=== PATIENT | male | born 1965 | race Caucasian/White ===

== ENCOUNTER → 2021-09-06 | Outpatient (CLI) | payer OTHER ==
--- NOTE | 2021-09-06 12:07 | XR ---
EXAMINATION TYPE: XR hand complete RT DATE OF EXAM: 09/06/2021 CLINICAL HISTORY: Pain from injury greatest third through fifth fingers TECHNIQUE: Frontal, lateral and oblique images of the right hand are obtained. COMPARISON: None. FINDINGS: There is no acute fracture/dislocation evident in the right hand. The joint spaces in the right hand appear within normal limits. The overlying soft tissue appears unremarkable. IMPRESSION: There is no acute fracture or dislocation in the right hand.
== END | disposition home or self-care (01) ==
LOC: RADXRMAIN 11:43
PROVIDERS: ATTEND Family Medicine
DX: S69.91XA Unspecified injury of right wrist, hand and finger(s), initial encounter (principal)

== ENCOUNTER → 2021-09-21 | Outpatient (CLI) | payer OTHER ==
[2021-09-21 10:11] LABS: African American GFR (CKD) >90 (>60 ml/min/1.73 sqM); Blood Urea Nitrogen 11 mg/dL (9-20); Non-African American GFR(CKD) >90 (>60 ml/min/1.73 sqM)
--- NOTE | 2021-09-21 13:05 | CT ---
EXAMINATION TYPE: CT pelvis w con DATE OF EXAM: 09/21/2021 COMPARISON: NONE HISTORY: 55-year-old male Malignant Neoplasm of Prostate TECHNIQUE: Contiguous axial scanning of the abdomen and pelvis following administration of 100 ml Omn ipaque 300 IV contrast. Delayed images through the kidneys and coronal/sagittal reconstructions perf ormed. CT DLP: 235.1 mGycm Automated exposure control for dose reduction was used. FINDINGS: There is fusiform ectasia of the distal abdominal aorta to 2.5 cm. No obvious lower retrope ritoneal or pelvic lymphadenopathy is seen. No dilated small bowel or free fluid. Prostate gland is enlarged measuring up to 4.7 cm wide. There is abnormal soft tissue mass extending from the right superior aspect of the prostate gland into the right paramedian base of bladder, exten ding into the bladder by 4.0 cm AP by 3.5 cm wide by 2.1 cm craniocaudal. Difficult to exclude some i nvolvement of the right seminal vesicle, axial image 41. Bones: Patchy sclerosis left ischial tuberosity and vague sclerosis posterior left iliac bone. IMPRESSION: 1. ABNORMAL SOFT TISSUE EXTENDING FROM THE PROSTATE GLAND INTO THE RIGHT PARAMEDIAN BASE OF THE BLADD ER MEASURES 4.0 X 3.5 X 2.1 CM. 2. CONCERNING FOR OSTEOBLASTIC METASTASES AT THE LEFT ISCHIAL TUBEROSITY AND POSTERIOR LEFT ILIAC BON E. 3. NO SUSPICIOUS LYMPHADENOPATHY SEEN IN THE PELVIS OR LOWER RETROPERITONEUM.
--- NOTE | 2021-09-21 15:28 | NM ---
EXAMINATION TYPE: NM bone scan whole body DATE OF EXAM: 09/21/2021 COMPARISON: CT pelvis 09/21/2021 HISTORY: Prostate cancer, C 61 Delayed whole-body scanning was performed following the injection of 22.5 mCi Tc 99m MDP. Images acq uired 3.75 hours post injection. FINDINGS: The left posterior patient shows increased radio pharmaceutical uptake, right superior pubic ramus al so shows abnormal uptake. Focus of abnormal uptake is also present in the posterior left acetabulum r egion. Uptake within the maxilla and mandible is likely due to periodontal disease. Soft tissue uptak e is normal. Posterior left ilium shows a focus of uptake which likely corresponds to CT abnormality. Uptake within the feet, knees, hands and wrists, shoulders is likely due to degenerative change. 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
== END | disposition home or self-care (01) ==
LOC: RADNMMAIN 09:28
PROVIDERS: ATTEND Urology
DX: C61 Malignant neoplasm of prostate (principal)
CPT/HCPCS: 82565; 84520; 72193; 36415; 78306; A9503; Q9967 ×2

== ENCOUNTER → 2021-11-23 | Outpatient (CLI) | payer OTHER ==
[2021-11-24 00:15] LABS: Prostate Specific Antigen 0.3 ng/mL (0.00-3.50); Testosterone 5.75 ng/mL (86.98-780.10)
== END | disposition home or self-care (01) ==
LOC: LABWHC1 15:24
PROVIDERS: ATTEND Urology
DX: C61 Malignant neoplasm of prostate (principal)
CPT/HCPCS: 36415; 84153; 84403

== ENCOUNTER → 2022-07-22 | Outpatient (CLI) | payer OTHER ==
--- NOTE | 2022-07-25 09:35 | NM ---
EXAMINATION TYPE: NM bone scan whole body DATE OF EXAM: 07/22/2022 2:50 PM CLINICAL INDICATION:Male, 56 years old with history of C61 Prostate cancer. COMPARISON: 09/21/2021 TECHNIQUE: Intravenous administration 22.5 mCi Tc 99m MDP followed by multiple scintigraphic images o f the appendicular and axial skeleton. Small [id number] pelvis images were taken. Images acquired 3.5 hours post injection. FINDINGS: Persistent abnormal uptake is identified within the right pelvis. No new areas of abnormal uptake. Th ere appears to be less uptake on this exam There is increased uptake within the bilateral shoulder, sternoclavicular, and sacroiliac joints con sistent with degenerative changes. No other photopenic areas or areas of increased activity are ident ified. Physiologic radiotracer activity is demonstrated in the kidneys and bladder. 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 Consider PET with gallium-68 PSMA.
== END | disposition home or self-care (01) ==
LOC: RADNMMAIN 09:57
PROVIDERS: ATTEND Family Medicine
DX: C61 Malignant neoplasm of prostate (principal)
CPT/HCPCS: 78306; A9503

== ENCOUNTER → 2023-10-12 | Outpatient (CLI) | payer OTHER | END | disposition home or self-care (01) | LOC: LABPRL 13:30 | PROVIDERS: ATTEND Family Medicine | DX: C61 Malignant neoplasm of prostate (principal) | CPT/HCPCS: 84153; 84403 ==

== ENCOUNTER 2024-09-02 14:44 | Inpatient (IN) | payer OTHER ==
[2024-09-02 15:20] LABS: Basophils # (A) 0.08 10*3/uL (0.00-0.10); Basophils % (A) 0.9 %; Eosinophils # (A) 0.03 10*3/uL (0.04-0.35); Eosinophils % (A) 0.3 %; HCT 42.3 % (39.6-50.0); HGB 15.1 g/dL (13.0-17.0); Lymphocytes # (A) 1.77 10*3/uL (0.90-5.00); Lymphocytes % (A) 19.1 %; MCH 33.6 pg (27.0-32.0); MCHC 35.7 g/dL (32.0-37.0); MCV 94.2 fL (80.0-97.0); Monocytes # (A) 0.79 10*3/uL (0.20-1.00); Monocytes % (A) 8.5 %; Neutrophils # (A) 6.56 10*3/uL (1.80-7.70); Neutrophils % (A) 70.9 %; Platelet Count 189 10*3/uL (140-440); RBC 4.49 10*6/uL (4.40-5.60); RDW 14.0 % (11.5-14.5); WBC 9.26 10*3/uL (4.50-10.00)
[2024-09-02] MEDS: KETOROLAC 15 MG/ML 1 ML VIAL IVP STA (15:26)
[2024-09-02] MEDS: LORazepam 1 MG/0.5 ML VIAL IV STA (15:27)
[2024-09-02 15:39] LABS: INR 0.9 (<1.2); Partial Thromboplastin Time 23.0 sec (22.0-30.0); Prothrombin Time 10.0 sec (10.0-12.5)
[2024-09-02 15:42] LABS: ALT 12 U/L (4-49); AST 30 U/L (17-59); African American GFR (CKD) >90 (>60 ml/min/1.73 sqM); Albumin 4.1 g/dL (3.5-5.0); Alkaline Phosphatase 140 U/L (38-126); Anion Gap 10 mmol/L; Blood Urea Nitrogen 7 mg/dL (9-20); Calcium 9.5 mg/dL (8.4-10.2); Carbon Dioxide 23 mmol/L (22-30); Chloride 102 mmol/L (98-107); Glucose 148 mg/dL (74-99); Non-African American GFR(CKD) >90 (>60 ml/min/1.73 sqM); Potassium 3.9 mmol/L (3.5-5.1); Sodium 135 mmol/L (137-145); Total Protein 6.7 g/dL (6.3-8.2)
--- NOTE | 2024-09-02 16:17 | ED ---
General Adult HPI - General Chief complaint: Chest Pain Stated complaint: Chest pain,SOB Time Seen by Provider: 09/02/24 14:50 Source: patient, RN notes reviewed, old records reviewed Mode of arrival: ambulatory Limitations: no limitations - History of Present Illness Initial comments: This is a 58-year-old male who presents to the emergency department complaining of sharp left-sided chest pain. Patient states is also been difficult to breathe but increasing pain occurs when he takes a deep breath. Patient does have history of prostate cancer. Patient denies any fever or chills. Patient denies any back pain. Patient states the pain is on the left side of his chest and again pleuritic in nature. Patient denies any swelling to his legs or calf tenderness. - Related Data Allergies Allergy/AdvReac Type Severity Reaction Status Date / Time No Known Allergies Allergy Verified 09/02/24 14:50 Review of Systems ROS Statement: Those systems with pertinent positive or pertinent negative responses have been documented in the HPI. ROS Other: All systems not noted in ROS Statement are negative. Past Medical History Additional Past Medical History / Comment(s): prostate cancer, History of Any Multi-Drug Resistant Organisms: None Reported Past Surgical History: No Surgical Hx Reported Past Psychological History: No Psychological Hx Reported Smoking Status: Current every day smoker Past Alcohol Use History: Occasional Past Drug Use History: Marijuana General Exam - General Exam Comments Initial Comments: GENERAL: Patient is well-developed and well-nourished. Patient is nontoxic and well- hydrated and is in mild distress. ENT: Neck is soft and supple. No significant lymphadenopathy is noted. Oropharynx is clear. Moist mucous membranes. Neck has full range of motion without eliciting any pain. EYES: The sclera were anicteric and conjunctiva were pink and moist. Extraocular movements were intact and pupils were equal round and reactive to light. Eyel ids were unremarkable. PULMONARY: Unlabored respirations. Good breath sounds bilaterally. No audible rales rhonchi or wheezing was noted. CARDIOVASCULAR: There is a regular rate and rhythm without any murmurs gallops or rubs. ABDOMEN: Soft and nontender with normal bowel sounds. SKIN: Skin is clear with no lesions or rashes and otherwise unremarkable. NEUROLOGIC: Patient is alert and oriented x3. Cranial nerves II through XII are grossly intact. Motor and sensory are also intact. Normal speech, volume and content. Symmetrical smile. MUSCULOSKELETAL: Normal extremities with adequate strength and full range of motion. LYMPHATICS: No significant lymphadenopathy is noted PSYCHIATRIC: Normal psychiatric evaluation. Limitations: no limitations Course Vital Signs 09/02/24 09/02/24 09/02/24 14:46 15:31 15:33 Temperature 97.7 F Pulse Rate 118 H 97 Respiratory 20 20 Rate Blood Pressure 103/63 127/92 O2 Sat by Pulse 93 L 92 L 96 Oximetry 09/02/24 16:39 Temperature Pulse Rate 93 Respiratory 20 Rate Blood Pressure 132/77 O2 Sat by Pulse 99 Oximetry Procedures - [place] Protocol (Time Out) Nurse: Terrell Figueroa Medical Decision Making - Medical Decision Making EKG is interpreted by myself EKG EKG shows sinus tachycardia at 111 bpm UT interval 136 QRS is 88 QT interval is 342 QTc is 407. Patient's EKG shows no ST segment elevation or depression Was pt. sent in by a medical professional or institution (CRISTIAN Diaz, PAEDIATRIC SURGEON, urgent care, hospital, or fdc...) When possible be specific @ -No Did you speak to anyone other than the patient for history (EMS, parent, family, police, friend...)? What history was obtained from this source @ -No Did you review nursing and triage notes (agree or disagree)? Why? @ -I reviewed and agree with nursing and triage notes Were old charts reviewed (outside hosp., previous admission, EMS record, old EKG, old radiological studies, urgent care reports/EKG's, fdc records)? Report findings @ -No old charts were reviewed Differential Diagnosis? @ -Differential Chest Pain: Stable Angina, Unstable Angina, STEMI, NSTEMI Aortic Dissection, Pneumothorax, Musculoskeletal, Esophageal Spasm GERD, Cholecystitis, Pancreatitis, Zoster, this is not meant to be an all-inclusive list. EKG interpreted by me (3pts min.). @ -As above X-rays interpreted by me (1pt min.). @ -None done CT interpreted by me (1pt min.). @ -CT of the chest shows bilateral pulmonary embolus as well as a inferior vena cava thrombus entering into the liver. Patient also has a left ventricle thrombus. U/S interpreted by me (1pt. min.). @ -None done What testing was considered but not performed or refused? (CT, X-rays, U/S, labs)? Why? @ -None What meds were considered but not given or refused? Why? @ -None Did you discuss the management of the patient with other professionals (professionals i.e. DrDelmi, PA, PAEDIATRIC SURGEON, lab, RT, psych nurse, web content & social media manager, marketing forecaster, teacher, business liaison officer, correctional casework specialist)? Give summary @ -I spoke with sound physicians agreed to admit the patient. I spoke with radiologist who identified the thrombus to me. I spoke with Dr. Gorman about the IVC heart and lung thrombus and he want the patient on high dose heparin which the patient was already on. Was smoking cessation discussed for >3mins.? @ -No Was critical care preformed (if so, how long)? @ -35 minutes Were there social determinants of health that impacted care today? How? (Homelessness, low income, unemployed, alcoholism, drug addiction, transportation, low edu. Level, literacy, decrease access to med. care, long-term, rehab)? @ -No Was there de-escalation of care discussed even if they declined (Discuss DNR or withdrawal of care, Hospice)? DNR status @ -No What co-morbidities impacted this encounter? (DM, HTN, Smoking, COPD, CAD, Cancer, CVA, ARF, Chemo, Hep., AIDS, mental health diagnosis, sleep apnea, morb id obesity)? @ -None Was patient admitted / discharged? Hospital course, mention meds given and rout e, prescriptions, significant lab abnormalities, going to OR and other pertinent info. @ -Patient has pulmonary embolisms and IVC and the left ventricle thrombus. Patient has been started on heparin high-dose. Patient will be admitted to the hospital to [facility] Undiagnosed new problem with uncertain prognosis? @ -No Drug Therapy requiring intensive monitoring for toxicity (Heparin, Nitro, Insulin, Cardizem)? @ -No Were any procedures done? @ -No Diagnosis/symptom? @ -Pulmonary embolism Acute, or Chronic, or Acute on Chronic? @ -Acute Uncomplicated (without systemic symptoms) or Complicated (systemic symptoms)? @ -Acute complicated Side effects of treatment? @ -No Exacerbation, Progression, or Severe Exacerbation? @ -No Poses a threat to life or bodily function? How? (Chest pain, USA, AR, pneumonia, PE, COPD, DKA, ARF, appy, cholecystitis, CVA, Diverticulitis, Homicidal, Suicid al, threat to staff... and all critical care pts) @ -Yes this can lead to hypoxia and endorgan dysfunction - Lab Data Result diagrams: 09/02/24 15:12 09/02/24 15:12 Lab Results 09/02/24 09/02/24 09/02/24 Range/Units 15:12 15:12 15:12 WBC 9.26 (4.50-10.00) 10*3/uL RBC 4.49 (4.40-5.60) 10*6/uL Hgb 15.1 (13.0-17.0) g/dL Hct 42.3 (39.6-50.0) % MCV 94.2 (80.0-97.0) fL MCH 33.6 H (27.0-32.0) pg MCHC 35.7 (32.0-37.0) g/dL Plt Count 189 (140-440) 10*3/uL MPV 9.4 L (9.5-12.2) fL Immature Gran % (Auto) 0.3 % Neutrophils % 70.9 % Lymphocytes % 19.1 % Monocytes % 8.5 % Eosinophils % 0.3 % Basophils % 0.9 % Immature Gran # 0.03 (0.00-0.04) 10*3/uL Neutrophils # 6.56 (1.80-7.70) 10*3/uL Lymphocytes # 1.77 (0.90-5.00) 10*3/uL Monocytes # 0.79 (0.20-1.00) 10*3/uL Eosinophils # 0.03 L (0.04-0.35) 10*3/uL Basophils # 0.08 (0.00-0.10) 10*3/uL PT 10.0 (10.0-12.5) sec INR 0.9 (<1.2) APTT 23.0 (22.0-30.0) sec D-Dimer 4.25 H (<0.60) mg/L FEU Sodium 135 L (137-145) mmol/L Potassium 3.9 (3.5-5.1) mmol/L Chloride 102 (98-107) mmol/L Carbon Dioxide 23 (22-30) mmol/L Anion Gap 10 mmol/L BUN 7 L (9-20) mg/dL Creatinine 0.62 L (0.66-1.25) mg/dL Est GFR (CKD-EPI)AfAm >90 (>60 ml/min/1.73 sqM) Est GFR (CKD-EPI)NonAf >90 (>60 ml/min/1.73 sqM) Glucose 148 H (74-99) mg/dL Plasma Lactic Acid Ken (0.7-2.0) mmol/L Calcium 9.5 (8.4-10.2) mg/dL Total Bilirubin 0.7 (0.2-1.3) mg/dL AST 30 (17-59) U/L ALT 12 (4-49) U/L Alkaline Phosphatase 140 H (38-126) U/L Troponin I (0.000-0.034) ng/mL Total Protein 6.7 (6.3-8.2) g/dL Albumin 4.1 (3.5-5.0) g/dL 09/02/24 09/02/24 Range/Units 15:12 15:12 WBC (4.50-10.00) 10*3/uL RBC (4.40-5.60) 10*6/uL Hgb (13.0-17.0) g/dL Hct (39.6-50.0) % MCV (80.0-97.0) fL MCH (27.0-32.0) pg MCHC (32.0-37.0) g/dL Plt Count (140-440) 10*3/uL MPV (9.5-12.2) fL Immature Gran % (Auto) % Neutrophils % % Lymphocytes % % Monocytes % % Eosinophils % % Basophils % % Immature Gran # (0.00-0.04) 10*3/uL Neutrophils # (1.80-7.70) 10*3/uL Lymphocytes # (0.90-5.00) 10*3/uL Monocytes # (0.20-1.00) 10*3/uL Eosinophils # (0.04-0.35) 10*3/uL Basophils # (0.00-0.10) 10*3/uL PT (10.0-12.5) sec INR (<1.2) APTT (22.0-30.0) sec D-Dimer (<0.60) mg/L FEU Sodium (137-145) mmol/L Potassium (3.5-5.1) mmol/L Chloride (98-107) mmol/L Carbon Dioxide (22-30) mmol/L Anion Gap mmol/L BUN (9-20) mg/dL Creatinine (0.66-1.25) mg/dL Est GFR (CKD-EPI)AfAm (>60 ml/min/1.73 sqM) Est GFR (CKD-EPI)NonAf (>60 ml/min/1.73 sqM) Glucose (74-99) mg/dL Plasma Lactic Acid Ken 1.9 (0.7-2.0) mmol/L Calcium (8.4-10.2) mg/dL Total Bilirubin (0.2-1.3) mg/dL AST (17-59) U/L ALT (4-49) U/L Alkaline Phosphatase (38-126) U/L Troponin I 0.529 H* (0.000-0.034) ng/mL Total Protein (6.3-8.2) g/dL Albumin (3.5-5.0) g/dL Disposition Clinical Impression: Pulmonary emboli, Inferior vena caval thrombosis, Acute thrombus of left ventricle Disposition: ADMITTED IP TO THIS HOSP Referrals: None,Stated [Primary Care Provider] - 1-2 days Time of Disposition: 17:27
--- NOTE | 2024-09-02 16:40 | CT ---
EXAMINATION TYPE: CT chest angio for PE CT DLP: 258.3 mGycm, Automated exposure control for dose reduction was used. DATE OF EXAM: 09/02/2024 4:01 PM COMPARISON: None. CLINICAL INDICATION:Male, 58 years old with history of Cancer history and sharp pleuritic chest pain; shortness of breath and chest pain x 0500 today. Chest pain is worse with breathing. Pt has prosta te cancer and he is currently getting chemo. TECHNIQUE/CONTRAST: CTA scan of the thorax is performed with IV Contrast, patient injected with 100ml mL of Isovue 370, M IP images are created and reviewed these are created on a separate workstation.. FINDINGS: Pulmonary Artery: There are multiple filling defects seen in the bilateral pulmonary arteries most no tably involving the right main stem extending into the interlobar branches involving the right upper and middle lobes which appear nearly occlusive proximally. There are segmental and subsegmental pulmo nary emboli involving the right lower lobe. There are long areas of filling defects seen in the left interlobar branches extending into the segmental and subsegmental branches of the left lower lobe. Th e pulmonary artery is of normal size. Lungs/Pleura: Diffuse centrilobular and paraseptal emphysematous changes most pronounced in the upper lobes. Bibasilar atelectasis is noted. In the left lingular region and lower lobe there are some pat sabiha groundglass changes and small areas of consolidation suggested. No pneumothorax. Airway: Large airways are patent. Heart: Heart is overall within normal limits for size. No right ventricular strain is seen with an RV /LV ratio of 0.875. There is a nonenhancing round peripherally calcified focus in the left ventricula r apex measuring approximately 2.3 x 2.3 cm. Vasculature: Large filling defect is suspected within the IVC extending into the liver with some fill ing defects suggested within the hepatic veins. No evidence of aortic aneurysm. Mediastinum: Multiple nonenlarged lymph nodes are seen in the mediastinum some of which are partially calcified. The largest of these is seen in the left subcarinal region measuring up to 1.0 cm in shor t axis and within the right hilum measuring up to 12 mm in short axis. Musculoskeletal: No acute osseous abnormalities Soft Tissues/lymph nodes: Unremarkable. Lower neck: No significant findings. Upper Abdomen: No significant findings. IMPRESSION: 1. Multiple pulmonary emboli are seen involving the bilateral pulmonary arteries most pronounced on t he right side where filling defects are seen proximal as the right mainstem which are nearly occlusiv e. Please see detailed findings above. No evidence for right heart strain at this time with an RV/LV ratio 0.875. 2. Thrombosis is suggested within the IVC extending into the liver with possible involvement into the hepatic veins. This finding is felt less likely related to contrast admixture. 3. Nonenhancing round focus of peripheral calcification of the left ventricular apex may represent ca lcified/thrombosed reticular aneurysm versus peripherally calcified left ventricular thrombus. This f inding can be better characterized with a cardiac MRI with IV contrast. Correlate with any known hist ory or other prior imaging. 4. Mediastinal lymphadenopathy may be reactive or secondary to other process. Attention on follow-up. 5. Small areas of consolidation and groundglass changes in the lingular region and left lower lobe ma y relate to pulmonary infarction versus other infectious/inflammatory process. Findings of the case were discussed with Dr. Mark Lorenzo over the phone at 4:21 PM on 09/02/[address] Urbina. [facility], , 09/02/2024 4:38 PM
[2024-09-02] MEDS: HEPARIN SODIUM 1,000 UN/ML (10ML VL) IV ONE (16:49)
[2024-09-02] MEDS: HEPARIN SOD,PORK IN 0.45% NACL 25,000 UNIT in 0.45% NACL 1 250ML.BAG IV SCH (16:50)
--- NOTE | 2024-09-02 17:32 | P.HPIM ---
History of Present Illness H&P Date: 09/02/24 Patient is a 58-year-old male with history of prostate cancer on enzalutamide, and megestrol, anxiety disorder, GERD presenting with sudden onset chest pain that started this morning. He claims that he was in his usual state of health and woke up this morning at 5 AM with sudden onset left-sided chest pain extending to his left neck. He described the pain as pleuritic, 10 out of 10, associated with shortness of breath, palpitations and lightheadedness. He denies any nausea or vomiting or diaphoresis. He does claim that he was noticing some pain in his left lower extremity 1 week ago. He denies any travel history or sick contacts. He denies any fevers or chills. In the ED, temperature was 97.7, pulse 118, blood pressure 103/63, respiratory rate 20, saturating at 93% on room air. WBC 9.26, hemoglobin 15.1, platelet 199, D-dimer 4.25, sodium 135, creatinine 0.62, troponin 0.529. Chest CTA shows multiple PE involving bilateral pulmonary arteries more pronounced on the right side, no significant evidence of right heart strain, thrombosis suggested in the IVC extending into the liver with possible involvement into the hepatic veins, nonenhancing round focus of peripheral calcification of the left ventricular apex may represent calcified/thrombosed reticular aneurysm versus peripherally calcified left ventricular thrombus, mediastinal lymphadenopathy, may be reactive, consolidation and groundglass changes in the lingular region and left lower lobe. Patient being admitted as inpatient for acute bilateral submassive PE. Pertinent positives and negatives as discussed in HPI, a complete review of systems was performed and all other systems are negative. Patient seen and examined at bedside. Vital signs reviewed General: nontoxic, no distress, appears at stated age Derm: warm, dry Head: atraumatic, normocephalic, symmetric Eyes: EOMI, no lid lag, anicteric sclera, pupils equal round reactive to light ENT: Nose and ears atraumatic Neck: No thyromegaly, supple Mouth: no lip lesion, mucus membranes moist Cardiovascular: S1S2 reg, tachycardic, no murmur, no edema Lungs: clear to auscultation bilateral, no rhonchi, no rales, no wheeze, no accessory muscle use, supplemental oxygen Abdominal: soft, nontender to palpation, no guarding, no appreciable org anomegaly Ext: no gross muscle atrophy, muscle strength muscle strength 5 out of 5 in all 4 extremities, no contractures Neuro: CN II-XII grossly intact Psych: Alert, oriented, appropriate affect Assessment/Plan: Active: Acute submassive bilateral PE, likely provoked Type II NSTEMI secondary to above - Discussed with cardiology, may need tPA given the clot burden - For now continue on heparin drip, monitor APTT - Oxygen as needed - Echocardiogram ordered - Continue telemetry monitoring LV thrombus? - Echocardiogram pending Mediastinal lymphadenopathy - Likely reactive - Will need follow-up in the future Prostate cancer - On enzalutamide and megestrol - Hold for now - Heme-onc consult Chronic: Anxiety disorder GERD - Resume home medications once reconciled by pharmacy The patient is admitted with an anticipated greater than 2 midnight stay as inpatient status for evaluation of PE. Surrogate decision-maker: Spouse CODE STATUS: Full code DVT prophylaxis: Heparin drip Anticipated discharge date: Pending clinical course Anticipated discharge place: Pending clinical course A total of 65 minutes was spent on the care of this complex patient more than 50% of the time was spent in counseling and care coordination. Past Medical History Additional Past Medical History / Comment(s): prostate cancer, History of Any Multi-Drug Resistant Organisms: None Reported Past Surgical History: No Surgical Hx Reported Past Psychological History: No Psychological Hx Reported Smoking Status: Current every day smoker Past Alcohol Use History: Occasional Past Drug Use History: Marijuana Medications and Allergies Allergies Allergy/AdvReac Type Severity Reaction Status Date / Time No Known Allergies Allergy Verified 09/02/24 14:50 Physical Exam Vitals: Vital Signs Temp Pulse Resp BP Pulse Ox 09/02/24 16:39 93 20 132/77 99 09/02/24 15:33 96 09/02/24 15:31 97 20 127/92 92 L 09/02/24 14:46 97.7 F 118 H 20 103/63 93 L Intake and Output 09/02/24 09/02/24 09/02/24 06:59 14:59 22:59 Other: Weight 63.503 kg Results CBC & Chem 7: 09/02/24 15:12 09/02/24 15:12 Labs: Abnormal Lab Results - Last 24 Hours (Table) 09/02/24 09/02/24 09/02/24 Range/Units 15:12 15:12 15:12 MCH 33.6 H (27.0-32.0) pg MPV 9.4 L (9.5-12.2) fL Eosinophils # 0.03 L (0.04-0.35) 10*3/uL D-Dimer 4.25 H (<0.60) mg/L FEU Sodium 135 L (137-145) mmol/L BUN 7 L (9-20) mg/dL Creatinine 0.62 L (0.66-1.25) mg/dL Glucose 148 H (74-99) mg/dL Alkaline Phosphatase 140 H (38-126) U/L Troponin I (0.000-0.034) ng/mL 09/02/24 Range/Units 15:12 MCH (27.0-32.0) pg MPV (9.5-12.2) fL Eosinophils # (0.04-0.35) 10*3/uL D-Dimer (<0.60) mg/L FEU Sodium (137-145) mmol/L BUN (9-20) mg/dL Creatinine (0.66-1.25) mg/dL Glucose (74-99) mg/dL Alkaline Phosphatase (38-126) U/L Troponin I 0.529 H* (0.000-0.034) ng/mL
[2024-09-02] MEDS: SODIUM CHLORIDE 0.9% 1,000 ML IV ONE (18:00)
[2024-09-02] MEDS: KETOROLAC 15 MG/ML 1 ML VIAL IVP PRN (21:48)
[2024-09-03] MEDS: HEPARIN SODIUM 1,000 UN/ML (10ML VL) IV PRN (02:47)
[2024-09-03] MEDS: MORPHINE SULFATE 4 MG/ML SYRINGE IVP PRN (06:43)
[2024-09-03 08:23] LABS: Basophils # (A) 0.09 10*3/uL (0.00-0.10); Basophils % (A) 0.9 %; Eosinophils # (A) 0.07 10*3/uL (0.04-0.35); Eosinophils % (A) 0.7 %; HCT 37.5 % (39.6-50.0); HGB 13.1 g/dL (13.0-17.0); Lymphocytes # (A) 1.78 10*3/uL (0.90-5.00); Lymphocytes % (A) 16.8 %; MCH 33.2 pg (27.0-32.0); MCHC 34.9 g/dL (32.0-37.0); MCV 94.9 fL (80.0-97.0); Monocytes # (A) 0.64 10*3/uL (0.20-1.00); Monocytes % (A) 6.1 %; Neutrophils # (A) 7.96 10*3/uL (1.80-7.70); Neutrophils % (A) 75.2 %; Platelet Count 173 10*3/uL (140-440); RBC 3.95 10*6/uL (4.40-5.60); RDW 13.9 % (11.5-14.5); WBC 10.57 10*3/uL (4.50-10.00)
[2024-09-03] MEDS: TAMSULOSIN 0.4 MG CAP.ER.24H PO SCH (09:02)
[2024-09-03] MEDS: ALPRAZolam 0.5 MG TAB PO SCH (09:02)
[2024-09-03 09:05] LABS: African American GFR (CKD) >90 (>60 ml/min/1.73 sqM); Anion Gap 4 mmol/L; Blood Urea Nitrogen 8 mg/dL (9-20); Calcium 8.8 mg/dL (8.4-10.2); Carbon Dioxide 24 mmol/L (22-30); Chloride 107 mmol/L (98-107); Glucose 116 mg/dL (74-99); Non-African American GFR(CKD) >90 (>60 ml/min/1.73 sqM); Potassium 3.9 mmol/L (3.5-5.1); Sodium 135 mmol/L (137-145)
--- NOTE | 2024-09-03 10:36 | US ---
EXAMINATION TYPE: US venous doppler duplex LE DATE OF EXAM: 09/03/2024 10:00 AM COMPARISON: NONE CLINICAL INDICATION: Male, 58 years old with history of swelling; PE, Pain TECHNIQUE: The lower extremity deep venous system is examined utilizing real time linear array sonog mariama with graded compression, color doppler sonography, and spectral doppler. SIDE PERFORMED: Bilateral FINDINGS: VESSELS IMAGED: Common Femoral Vein Deep Femoral Vein Greater Saphenous Vein * Femoral Vein Popliteal Vein Small Saphenous Vein * Proximal Calf Veins (* superficial vessels) Right Leg: No evidence for DVT, Color Doppler imaging shows patency of the vessels. Spectral wavefor ms are within normal limits. Left Leg: Echoes seen from distal femoral vein to calf veins with no compression and little blood fl ow., IMPRESSION: 1. No evidence of deep vein thrombosis of the right lower extremity. 2. Acute appearing near occlusive deep venous thrombosis of the left lower extremity distal femoral v ein to the calf veins. Patient has known pulmonary emboli. A [employer] critical message alert has been initiated for John~[id number] Sherif Harris via the [employer] Critical Results System on 09/03/2024 10:34 AM. This message alert has been sent to A nup~[id number] Sherif Harris via the preferences provided by the clinician for the receipt of Rad iology Critical Findings. Message ID [id number]. [facility], , 09/03/2024 10:34 AM
[2024-09-03] MEDS: KETOROLAC 15 MG/ML 1 ML VIAL IVP SCH (12:27)
--- NOTE | 2024-09-03 12:46 | P.CONS ---
History of Present Illness - Reason for Consult Consult date: 09/03/24 Prostate cancer, new submassive PE Requesting physician: Gera Alvarez - History of Present Illness History of present illness; Patient is very pleasant 58-year-old gentleman with PMH significant for metastatic prostate adenocarcinoma. In 2021, he was noted to have a weak urinary stream with associated dysuria, however had no hematuria. Routine PSA obtained on 09/02/2021 was 123. He followed up with urology underwent a prostate biopsy on 09/08/2021 where 5 cores were obtained which revealed prostate adenocarcinoma with highest grade being [place] grade 4+4 (total score 8, grade group 4) present in 4 out of the [address] of the pelvis on 09/21/2021 noted abnormal soft tissue extending from the prostate gland into the right paramedian base of the bladder measuring 4 x 3.5 x 2.1 cm along with concern for osteoblastic metastasis at the left ischial tuberosity and posterior left iliac bone. Bone scan was completed which revealed uptake in the right superior pubic ramus, posterior left acetabulum and posterior left ilium. He was started on Xtandi 160 mg daily and Lupron for androgen deprivation therapy. Progressive decrease in his PSA to a erin of less than 0.01 on 10/08/2022 and has remained undetectable since that time. He presented to the emergency department on 09/02/2024 after waking up early that morning with sudden onset chest pain. He states he woke up at 5 AM with this p ain, attempted to or waited out however came to the hospital at 1 PM because the pain continued to be too severe. He described it as pleuritic, 10/10, with associated shortness of breath, palpitations and lightheadedness. He denied any nausea, vomiting or diaphoresis. He noted some lower extremity pain and swelling approximately 1-2 weeks prior to presenting to the hospital. Additionally, he feels as though he had some sort of viral infection, he feels it was similar to a previous episode of COVID he had, however he was never tested, and the 2-3 weeks leading up to his visit to the hospital. Additionally, it was noted he has been taking Megace at home for a prolonged period of time. On arrival his D-dimer was noted to be 4.25 which was not enough cause for concern for a CTA of the chest to be ordered. CT of the chest was completed and showed multiple pulmonary emboli involving the bilateral pulmonary arteries most pronounced on the right side or filling defects are seen proximal is the right mainstem which are nearly occlusive, without evidence of right heart strain; thrombosis is suggested within the IVC extending into the liver with possible involvement of the hepatic veins; n onenhancing rounded focus of peripheral calcification of the left ventricular apex which may present calcified/thrombosed reticular aneurysm versus peripherally calcified left ventricular thrombus; mediastinal lymphadenopathy which may be reactive; small areas of consolidation and groundglass changes in the lingular region of the left lower lobe. At that time, he was initiated on heparin drip for anticoagulation. When seen this morning, 09/03/2024, he reports his discomfort has improved however remains somewhat present. Some associated shortness of breath, and discomfort when attempting to take a deep breath. Review of Systems REVIEW OF SYSTEMS: All systems reviewed, pertinent positives and negatives noted in HPI. All other symptoms are negative. Past Medical History Additional Past Medical History / Comment(s): prostate cancer, History of Any Multi-Drug Resistant Organisms: None Reported Past Surgical History: No Surgical Hx Reported Past Psychological History: No Psychological Hx Reported Smoking Status: Current every day smoker Past Alcohol Use History: Occasional Past Drug Use History: Marijuana Medications and Allergies Home Medications Medication Instructions Recorded Confirmed Type ALPRAZolam [Xanax] 0.5 - 1 mg PO BID 09/02/24 09/02/24 History Calcium 26/Magnesium 15/Zinc 1 cap PO BID 09/02/24 09/02/24 History [Eluxzxj-Uwvirohcj-Ywyz Capsule] Cholecalciferol [Vitamin D3 (10 20 mcg PO BID 09/02/24 09/02/24 History Mcg = 400 Iu)] Enzalutamide [Xtandi] 160 mg PO DAILY 09/02/24 09/02/24 History Loratadine [Claritin] 10 mg PO HS 09/02/24 09/02/24 History Megestrol Acetate 20 mg PO HS 09/02/24 09/02/24 History Pantoprazole [Protonix] 40 mg PO HS 09/02/24 09/02/24 History Tamsulosin [Flomax] 0.4 mg PO BID 09/02/24 09/02/24 History Allergies Allergy/AdvReac Type Severity Reaction Status Date / Time No Known Allergies Allergy Verified 09/02/24 18:43 Physical Exam Vitals: Vital Signs Temp Pulse Resp BP Pulse Ox 09/03/24 10:00 81 16 114/72 96 09/03/24 08:00 81 18 120/70 97 09/03/24 06:00 81 18 120/76 98 09/03/24 00:00 78 18 122/76 98 09/02/24 21:44 87 18 121/79 98 09/02/24 19:19 93 18 114/78 99 09/02/24 17:57 96 20 126/77 98 09/02/24 16:39 93 20 132/77 99 09/02/24 15:33 96 09/02/24 15:31 97 20 127/92 92 L 09/02/24 14:46 97.7 F 118 H 20 103/63 93 L Intake and Output 09/02/24 09/03/24 09/03/24 22:59 06:59 14:59 Intake Total 113.357 Balance 113.357 Intake: Intake, IV Titration 113.357 Amount Heparin Sod,Pork in 0.45% 113.357 NaCl 25,000 unit In 0.45 % NaCl 1 250ml.bag @ 18 UNITS/KG/HR 11.431 mls/hr IV .[id number] [facility] Rx#: [id number] Physical Exam: General: nontoxic, no distress, appears at stated age Derm: warm, dry, intact Head: atraumatic, normocephalic, symmetric Eyes: EOMI, anicteric sclera Mouth: no lip lesion, mucus membranes moist Cardiovascular: S1 S2 reg, no murmur, rubs, or gallops Lungs: CTA bilateral, no rales, no accessory muscle use Abdominal: soft, non-tender to palpataion, no appreciable organomegaly Extremities: no gross muscle atrophy, no edema, no contractures Neuro: Alert, Oriented, CNII-XII grossly intact, gait normal Psych: well appearing, appropriate affect Results CBC & Chem 7: 09/03/24 08:05 09/03/24 08:05 Labs: Abnormal Lab Results - Last 24 Hours (Table) 09/02/24 09/02/24 09/02/24 Range/Units 15:12 15:12 15:12 WBC (4.50-10.00) 10*3/uL RBC (4.40-5.60) 10*6/uL Hct (39.6-50.0) % MCH 33.6 H (27.0-32.0) pg MPV 9.4 L (9.5-12.2) fL Neutrophils # (1.80-7.70) 10*3/uL Eosinophils # 0.03 L (0.04-0.35) 10*3/uL APTT (22.0-30.0) sec D-Dimer 4.25 H (<0.60) mg/L FEU Sodium 135 L (137-145) mmol/L BUN 7 L (9-20) mg/dL Creatinine 0.62 L (0.66-1.25) mg/dL Glucose 148 H (74-99) mg/dL Alkaline Phosphatase 140 H (38-126) U/L Troponin I (0.000-0.034) ng/mL 09/02/24 09/02/24 09/02/24 Range/Units 15:12 19:41 23:33 WBC (4.50-10.00) 10*3/uL RBC (4.40-5.60) 10*6/uL Hct (39.6-50.0) % MCH (27.0-32.0) pg MPV (9.5-12.2) fL Neutrophils # (1.80-7.70) 10*3/uL Eosinophils # (0.04-0.35) 10*3/uL APTT 35.1 H (22.0-30.0) sec D-Dimer (<0.60) mg/L FEU Sodium (137-145) mmol/L BUN (9-20) mg/dL Creatinine (0.66-1.25) mg/dL Glucose (74-99) mg/dL Alkaline Phosphatase (38-126) U/L Troponin I 0.529 H* 0.489 H* (0.000-0.034) ng/mL 09/02/24 09/03/24 09/03/24 Range/Units 23:33 08:05 08:05 WBC 10.57 H (4.50-10.00) 10*3/uL RBC 3.95 L (4.40-5.60) 10*6/uL Hct 37.5 L (39.6-50.0) % MCH 33.2 H (27.0-32.0) pg MPV (9.5-12.2) fL Neutrophils # 7.96 H (1.80-7.70) 10*3/uL Eosinophils # (0.04-0.35) 10*3/uL APTT (22.0-30.0) sec D-Dimer (<0.60) mg/L FEU Sodium 135 L (137-145) mmol/L BUN 8 L (9-20) mg/dL Creatinine 0.60 L (0.66-1.25) mg/dL Glucose 116 H (74-99) mg/dL Alkaline Phosphatase (38-126) U/L Troponin I 0.429 H* (0.000-0.034) ng/mL 09/03/24 Range/Units 08:05 WBC (4.50-10.00) 10*3/uL RBC (4.40-5.60) 10*6/uL Hct (39.6-50.0) % MCH (27.0-32.0) pg MPV (9.5-12.2) fL Neutrophils # (1.80-7.70) 10*3/uL Eosinophils # (0.04-0.35) 10*3/uL APTT 40.1 H (22.0-30.0) sec D-Dimer (<0.60) mg/L FEU Sodium (137-145) mmol/L BUN (9-20) mg/dL Creatinine (0.66-1.25) mg/dL Glucose (74-99) mg/dL Alkaline Phosphatase (38-126) U/L Troponin I (0.000-0.034) ng/mL Assessment and Plan Assessment: #Provoked pulmonary embolism, likely secondary to Megace use v recent viral i nfection - Bilateral lower extremity ultrasound completed, showed evidence of near occlu sive DVT of the left lower extremity distal to the femoral vein to the calf veins - Discontinue heparin drip, initiate patient on Eliquis - 10 mg twice daily for 1 week, as loading dose; then continue with 5 mg twice daily for the remainder of 3 months total treatment #Mild neutrophilic leukocytosis, likely secondary to PE - Continue to monitor CBC with differential #Mediastinal lymphadenopathy, likely reactive secondary to PE - Noted on CTA chest #Metastatic prostate cancer - Maintained on Xtandi 160 mg daily and Lupron injection - Most recent Lupron injection was March 2024, next due in September 2024 - Had been having hot flashes secondary to Lupron, had been taking Megace at home - DISCONTINUE Megace, can consider alternative medication for hot flashes which are not normal based like Veozah Dictation was produced using [employer] dictation software. please excuse any grammatical, word or spelling errors. Ludwig Celestin MD PGY-2 IM Patient seen with resident and agree with assessment and plan as outlined above. Mr. Stevens presented with pleuritic chest discomfort awaken him from sleep and was found to have bilateral pulmonary embolism as well as left lower extremity DVT. He has been using Megace to help with vasomotor symptoms from androgen deprivation therapy and did have URI suspicious for potential COVID-19, although he was not tested for this. He likely has provoked DVT/PE secondary to Megace and potential viral infection (COVID-19?) limiting ambulation. His PSA in June 2024 was undetectable with no radiographic findings on CT of the chest concerning for progressive malignancy. I recommended therapeutic anticoagulation for 3 months. We will attempt to arrange for alternative treatment for vasomotor symptoms such as Veozah, which will require insurance prior authorization. John Dye MD
[2024-09-03] MEDS ORDERED: HEPARIN SODIUM 1,000 UN/ML (10ML VL) IV PRN (12:53)
[2024-09-03] MEDS ORDERED: Apixaban Initiation Dose--VTE 5 MG TAB PO SCH (13:00)
[2024-09-03 13:14] LABS: NT-Pro-B-Type Natriuretic Pept 1380 pg/mL
--- NOTE | 2024-09-03 13:20 | P.CONS ---
History of Present Illness - Reason for Consult Consult date: 09/03/24 - History of Present Illness Dr. Bauer's addendum Patient is seen and examined with the resident at bedside # Bilateral submassive PE # LV thrombus # Hypercoagulability with arterial and venous thrombus formation spontaneously # Prostate cancer # Family history of VTE Plan IV heparin. Lifelong anticoagulation. Vascular surgery consult for thrombectomy evaluation. Patient is a 58-year-old male presented to the ER with complaint of sudden onset left-sided chest pain at 5 am yesterday morning. Patient described pain as constant, pleuritic in nature, 10/10, left-sided, radiating to left shoulder and left neck associated with diaphoresis and shortness of breath. Patient reports no previous episodes of chest pain. Past medical history significant for prostate cancer on daily hormonal therapy. Patient reports that he had COVID-19 associated URTI 3 weeks ago for which he was bed resting and was therefore less mobile. Patient however denies history of DVT, no recent history of travel, denies pain or swelling of lower extremities. Pertinent labs: WBC 9.2, hemoglobin 15.1, sodium 135, potassium 3.9, BUN 7, creatinine 0.60, troponin I 0.529, 0.489, 0.429, D-dimer 4.25 Pertinent Images: Chest CTA showed multiple pulmonary emboli involving the bilateral pulmonary arteries mostly on the right side no evidence of right heart strain. IVC thrombosis extending into the liver with possible involvement into hepatic vein. Nonenhancing round focus of peripheral calcification of the left ventricular apex may represent calcified/thrombosed reticular aneurysm versus peripherally calcified left ventricular thrombus. Mediastinal lymphadenopathy. Small areas of consolidation and groundglass changes in the lingular region and left lower lobe. EKG shows sinus tachycardia with ventricular rate of 111 bpm, DC interval 136 ms, QRS duration 88 ms, QTc 407 ms. Left axis deviation noted. Vitals: Heart rate 81 bpm, respiratory rate 16, blood pressure 114/72, oxygen saturation 96% on room air Review of systems: Pertinent positives and negatives as discussed in HPI, a complete review of systems was performed and all other systems are negative. Social history: Tobacco: Current everyday smoker Alcohol: Occasional EtOH Recreational drugs: Smokes marijuana Travel: No recent travel Family History: Pulm embolism in mother Physical examination: Vital signs reviewed General: non toxic, no distress, appears at stated age, normal weight Neck: No cervical lymphadenopathy, trachea midline, supple, no JVP Mouth: no lip lesion, mucus membranes moist Cardiovascular: S1S2 reg, no murmur, positive dorsalis pedis pulse bilateral, no edema Lungs: CTA bilateral, no rhonchi, no rales, no accessory muscle use Abdominal: soft, nontender to palpation, no guarding Assessment: #Acute bilateral submassive pulmonary embolism with high clot burden, likely provoked in the setting of prostate cancer vs recent immobilization #Elevated troponin secondary to submassive embolism #Prostate cancer, currently on hormonal therapy #Family history of pulmonary embolism #Calcified left ventricular thrombus on chest CTA Plan: Continue with IV heparin drip Consult vascular surgery for possible thrombectomy due to high clot burden Order echocardiogram to assess cardiac structure Patient will need lifelong anticoagulation Order NT proBNP, TSH, lipid panel Order venous Doppler ultrasound of the bilateral lower extremities Continue heme-onc follow up for prostate cancer Past Medical History Additional Past Medical History / Comment(s): prostate cancer, History of Any Multi-Drug Resistant Organisms: None Reported Past Surgical History: No Surgical Hx Reported Past Psychological History: No Psychological Hx Reported Smoking Status: Current every day smoker Past Alcohol Use History: Occasional Past Drug Use History: Marijuana Medications and Allergies Home Medications Medication Instructions Recorded Confirmed Type ALPRAZolam [Xanax] 0.5 - 1 mg PO BID 09/02/24 09/02/24 History Calcium 26/Magnesium 15/Zinc 1 cap PO BID 09/02/24 09/02/24 History [Tltjrre-Fsxlyrmgm-Gncx Capsule] Cholecalciferol [Vitamin D3 (10 20 mcg PO BID 09/02/24 09/02/24 History Mcg = 400 Iu)] Enzalutamide [Xtandi] 160 mg PO DAILY 09/02/24 09/02/24 History Loratadine [Claritin] 10 mg PO HS 09/02/24 09/02/24 History Megestrol Acetate 20 mg PO HS 09/02/24 09/02/24 History Pantoprazole [Protonix] 40 mg PO HS 09/02/24 09/02/24 History Tamsulosin [Flomax] 0.4 mg PO BID 09/02/24 09/02/24 History Allergies Allergy/AdvReac Type Severity Reaction Status Date / Time No Known Allergies Allergy Verified 09/02/24 18:43 Physical Exam Vitals: Vital Signs Temp Pulse Resp BP Pulse Ox 09/03/24 10:00 81 16 114/72 96 09/03/24 08:00 81 18 120/70 97 09/03/24 06:00 81 18 120/76 98 09/03/24 00:00 78 18 122/76 98 09/02/24 21:44 87 18 121/79 98 09/02/24 19:19 93 18 114/78 99 09/02/24 17:57 96 20 126/77 98 09/02/24 16:39 93 20 132/77 99 09/02/24 15:33 96 09/02/24 15:31 97 20 127/92 92 L 09/02/24 14:46 97.7 F 118 H 20 103/63 93 L Intake and Output 09/02/24 09/03/24 09/03/24 22:59 06:59 14:59 Intake Total 113.357 124.47 Balance 113.357 124.47 Intake: Intake, IV Titration 113.357 124.47 Amount Heparin Sod,Pork in 0.45% 113.357 124.47 NaCl 25,000 unit In 0.45 % NaCl 1 250ml.bag @ 18 UNITS/KG/HR 11.431 mls/hr IV .[id number] [facility] Rx#: [id number] Results CBC & Chem 7: 09/03/24 08:05 09/03/24 08:05 Labs: Abnormal Lab Results - Last 24 Hours (Table) 09/02/24 09/02/24 09/02/24 Range/Units 15:12 15:12 15:12 WBC (4.50-10.00) 10*3/uL RBC (4.40-5.60) 10*6/uL Hct (39.6-50.0) % MCH 33.6 H (27.0-32.0) pg MPV 9.4 L (9.5-12.2) fL Neutrophils # (1.80-7.70) 10*3/uL Eosinophils # 0.03 L (0.04-0.35) 10*3/uL APTT (22.0-30.0) sec D-Dimer 4.25 H (<0.60) mg/L FEU Sodium 135 L (137-145) mmol/L BUN 7 L (9-20) mg/dL Creatinine 0.62 L (0.66-1.25) mg/dL Glucose 148 H (74-99) mg/dL Alkaline Phosphatase 140 H (38-126) U/L Troponin I (0.000-0.034) ng/mL 09/02/24 09/02/24 09/02/24 Range/Units 15:12 19:41 23:33 WBC (4.50-10.00) 10*3/uL RBC (4.40-5.60) 10*6/uL Hct (39.6-50.0) % MCH (27.0-32.0) pg MPV (9.5-12.2) fL Neutrophils # (1.80-7.70) 10*3/uL Eosinophils # (0.04-0.35) 10*3/uL APTT 35.1 H (22.0-30.0) sec D-Dimer (<0.60) mg/L FEU Sodium (137-145) mmol/L BUN (9-20) mg/dL Creatinine (0.66-1.25) mg/dL Glucose (74-99) mg/dL Alkaline Phosphatase (38-126) U/L Troponin I 0.529 H* 0.489 H* (0.000-0.034) ng/mL 09/02/24 09/03/24 09/03/24 Range/Units 23:33 08:05 08:05 WBC 10.57 H (4.50-10.00) 10*3/uL RBC 3.95 L (4.40-5.60) 10*6/uL Hct 37.5 L (39.6-50.0) % MCH 33.2 H (27.0-32.0) pg MPV (9.5-12.2) fL Neutrophils # 7.96 H (1.80-7.70) 10*3/uL Eosinophils # (0.04-0.35) 10*3/uL APTT (22.0-30.0) sec D-Dimer (<0.60) mg/L FEU Sodium 135 L (137-145) mmol/L BUN 8 L (9-20) mg/dL Creatinine 0.60 L (0.66-1.25) mg/dL Glucose 116 H (74-99) mg/dL Alkaline Phosphatase (38-126) U/L Troponin I 0.429 H* (0.000-0.034) ng/mL 09/03/24 Range/Units 08:05 WBC (4.50-10.00) 10*3/uL RBC (4.40-5.60) 10*6/uL Hct (39.6-50.0) % MCH (27.0-32.0) pg MPV (9.5-12.2) fL Neutrophils # (1.80-7.70) 10*3/uL Eosinophils # (0.04-0.35) 10*3/uL APTT 40.1 H (22.0-30.0) sec D-Dimer (<0.60) mg/L FEU Sodium (137-145) mmol/L BUN (9-20) mg/dL Creatinine (0.66-1.25) mg/dL Glucose (74-99) mg/dL Alkaline Phosphatase (38-126) U/L Troponin I (0.000-0.034) ng/mL
[2024-09-03] MEDS: HEPARIN SOD,PORK IN 0.45% NACL 25,000 UNIT in 0.45% NACL 1 250ML.BAG IV SCH (13:28)
--- NOTE | 2024-09-03 14:02 | P.PN ---
Subjective Progress Note Date: 09/03/24 Patient reports significant pain today. Mentions that shortness of breath is still present but improved compared to yesterday. Denies any new symptoms today. Echo in process as I was in the room. Understands plan for possible thrombectomy. Objective - Vital Signs Vital signs: Vital Signs Temp 97.7 F 09/02/24 14:46 Pulse 89 09/03/24 12:00 Resp 18 09/03/24 12:00 BP 112/60 09/03/24 12:00 Pulse Ox 95 09/03/24 12:00 FiO2 Intake & Output 09/02/24 09/03/24 09/03/24 18:59 06:59 18:59 Intake Total 113.357 124.851 Balance 113.357 124.851 Weight 63.503 kg Intake: Intake, IV Titration 113.357 124.851 Amount Heparin Sod,Pork in 0.45% 113.357 124.47 NaCl 25,000 unit In 0.45 % NaCl 1 250ml.bag @ 18 UNITS/KG/HR 11.431 mls/hr IV .[id number] [facility] Rx#: [id number] Heparin Sod,Pork in 0.45% 0.381 NaCl 25,000 unit In 0.45 % NaCl 1 250ml.bag @ 18 UNITS/KG/HR 11.431 mls/hr IV .[id number] [facility] Rx#: [id number] - Exam Vital signs reviewed General: nontoxic, mild distress, appears at stated age Derm: warm, dry Head: atraumatic, normocephalic, symmetric Eyes: EOMI, no lid lag, anicteric sclera, pupils equal round reactive to light ENT: Nose and ears atraumatic Neck: No thyromegaly, supple Mouth: no lip lesion, mucus membranes moist Cardiovascular: tachycardic, S3 heard, no murmur, no edema Lungs: clear to auscultation bilateral, no rhonchi, no rales, no wheeze, no accessory muscle use, supplemental oxygen, occasional cough upon deep inspiration. Abdominal: soft, nontender to palpation, no guarding, no appreciable organomegaly Ext: no gross muscle atrophy, muscle strength muscle strength 5 out of 5 in all 4 extremities, no contractures Neuro: CN II-XII grossly intact Psych: Alert, oriented, appropriate affect - Labs CBC & Chem 7: 09/03/24 08:05 09/03/24 08:05 Labs: Abnormal Lab Results - Last 24 Hours (Table) 09/02/24 09/02/24 09/02/24 Range/Units 15:12 15:12 15:12 WBC (4.50-10.00) 10*3/uL RBC (4.40-5.60) 10*6/uL Hct (39.6-50.0) % MCH 33.6 H (27.0-32.0) pg MPV 9.4 L (9.5-12.2) fL Neutrophils # (1.80-7.70) 10*3/uL Eosinophils # 0.03 L (0.04-0.35) 10*3/uL APTT (22.0-30.0) sec D-Dimer 4.25 H (<0.60) mg/L FEU Sodium 135 L (137-145) mmol/L BUN 7 L (9-20) mg/dL Creatinine 0.62 L (0.66-1.25) mg/dL Glucose 148 H (74-99) mg/dL Alkaline Phosphatase 140 H (38-126) U/L Troponin I (0.000-0.034) ng/mL 09/02/24 09/02/24 09/02/24 Range/Units 15:12 19:41 23:33 WBC (4.50-10.00) 10*3/uL RBC (4.40-5.60) 10*6/uL Hct (39.6-50.0) % MCH (27.0-32.0) pg MPV (9.5-12.2) fL Neutrophils # (1.80-7.70) 10*3/uL Eosinophils # (0.04-0.35) 10*3/uL APTT 35.1 H (22.0-30.0) sec D-Dimer (<0.60) mg/L FEU Sodium (137-145) mmol/L BUN (9-20) mg/dL Creatinine (0.66-1.25) mg/dL Glucose (74-99) mg/dL Alkaline Phosphatase (38-126) U/L Troponin I 0.529 H* 0.489 H* (0.000-0.034) ng/mL 09/02/24 09/03/24 09/03/24 Range/Units 23:33 08:05 08:05 WBC 10.57 H (4.50-10.00) 10*3/uL RBC 3.95 L (4.40-5.60) 10*6/uL Hct 37.5 L (39.6-50.0) % MCH 33.2 H (27.0-32.0) pg MPV (9.5-12.2) fL Neutrophils # 7.96 H (1.80-7.70) 10*3/uL Eosinophils # (0.04-0.35) 10*3/uL APTT (22.0-30.0) sec D-Dimer (<0.60) mg/L FEU Sodium 135 L (137-145) mmol/L BUN 8 L (9-20) mg/dL Creatinine 0.60 L (0.66-1.25) mg/dL Glucose 116 H (74-99) mg/dL Alkaline Phosphatase (38-126) U/L Troponin I 0.429 H* (0.000-0.034) ng/mL 09/03/24 Range/Units 08:05 WBC (4.50-10.00) 10*3/uL RBC (4.40-5.60) 10*6/uL Hct (39.6-50.0) % MCH (27.0-32.0) pg MPV (9.5-12.2) fL Neutrophils # (1.80-7.70) 10*3/uL Eosinophils # (0.04-0.35) 10*3/uL APTT 40.1 H (22.0-30.0) sec D-Dimer (<0.60) mg/L FEU Sodium (137-145) mmol/L BUN (9-20) mg/dL Creatinine (0.66-1.25) mg/dL Glucose (74-99) mg/dL Alkaline Phosphatase (38-126) U/L Troponin I (0.000-0.034) ng/mL Assessment and Plan Plan: Results reviewed today: WBC 10.57, Hgb 13.1, Na 135, Cr 0.6, APTT 40.1 Aisha duplex US demonstrates acute near occlusive DVT of LLE distal femoral vein to calf veins Active: Acute submassive bilateral PE, likely provoked Type II NSTEMI secondary to above DVT to LLE - Cardiology and vascular surgery consulted, may need thrombectomy vs tpa - For now continue on heparin drip, monitor APTT - Oxygen as needed - Echocardiogram pending - Continue telemetry monitoring LV thrombus? - Echocardiogram pending Mediastinal lymphadenopathy - Likely reactive - Will need follow-up in the future Prostate cancer - Continuing home enzalutamide and holding megestrol - Heme-onc consulted; NT-pro BNP: 1380, TSH: 4.55, lipid panel ordered - Home flomax restarted - Discussed with heme-onc, may start patient on Eliquis 10 twice daily if no further procedures Chronic: Anxiety disorder GERD -Home xanax, pantopraxole restarted DVT prophylaxis: Heparin drip Anticipated discharge date: Pending clinical course Anticipated discharge place: Pending clinical course I have seen and evaluated the patient today. Discussed with the resident and ag ree with the residents finding and plan as documented in the resident's note. Changes highlighted in blue font.
--- NOTE | 2024-09-03 16:13 | P.GSCN ---
History of Present Illness Consult date: 09/03/24 Reason for Consult: Bilateral pulmonary embolism, IVC thrombus History of present illness: 58-year-old gentleman with history of prostate cancer currently on oral treatment, COVID infection a couple weeks ago as well as current hormonal therap y as well for his prostate cancer presented to the emergency department secondary to sudden onset of left chest pain. He was seen in the emergency department and underwent CTA of the chest regarding PE which was positive as well as large amount of thrombus noted in the IVC and hepatic veins. He was started on a heparin drip and states that his pain has improved since his admission. Patient reports no previous episodes of chest pain. Past medical history significant for prostate cancer on daily hormonal therapy. He also admits to recently sitting for a long period of time for graduation which may have led to his blood clots. Patient however denies history of DVT, no recent history of travel, denies pain or swelling of lower extremities. He denies any fevers, chills, chest pain or shortness of breath currently. He states he has not tried to get up and move and therefore does not know how significant his shortness of breath would be. Review of Systems All systems: negative (What is mentioned in the HPI or past medical history) Past Medical History Additional Past Medical History / Comment(s): prostate cancer, History of Any Multi-Drug Resistant Organisms: None Reported Past Surgical History: No Surgical Hx Reported Past Psychological History: No Psychological Hx Reported Smoking Status: Current every day smoker Past Alcohol Use History: Occasional Past Drug Use History: Marijuana Medications and Allergies Home Medications Medication Instructions Recorded Confirmed Type ALPRAZolam [Xanax] 0.5 - 1 mg PO BID 09/02/24 09/02/24 History Calcium 26/Magnesium 15/Zinc 1 cap PO BID 09/02/24 09/02/24 History [Ubxacpe-Tgejsktdi-Dbki Capsule] Cholecalciferol [Vitamin D3 (10 20 mcg PO BID 09/02/24 09/02/24 History Mcg = 400 Iu)] Enzalutamide [Xtandi] 160 mg PO DAILY 09/02/24 09/02/24 History Loratadine [Claritin] 10 mg PO HS 09/02/24 09/02/24 History Megestrol Acetate 20 mg PO HS 09/02/24 09/02/24 History Pantoprazole [Protonix] 40 mg PO HS 09/02/24 09/02/24 History Tamsulosin [Flomax] 0.4 mg PO BID 09/02/24 09/02/24 History Allergies Allergy/AdvReac Type Severity Reaction Status Date / Time No Known Allergies Allergy Verified 09/02/24 18:43 Surgical - Exam Vital Signs Temp Pulse Resp BP Pulse Ox 97.7 F 118 H 20 103/63 93 L 09/02/24 14:46 09/02/24 14:46 09/02/24 14:46 09/02/24 14:46 09/02/24 14:46 Patient Seen Date: 09/03/24 Patient Seen Time: 14:45 - General well developed, well nourished, no distress - Eyes PERRL, normal ocular movement - ENT normal pinna, normal nares - Neck no masses - Respiratory normal expansion, normal respiratory effort - Cardiovascular Rhythm: regular - Abdomen Abdomen: soft, non tender - Integumentary no rash, no growths - Neurologic normal sensation - Psychiatric oriented to time, oriented to person, oriented to place, speech is normal Palpable DP pulses bilaterally Results CTA chest demonstrates bilateral pulmonary embolism with thrombus extending into the IVC as well as hepatic vein Lower extremity ultrasound demonstrates DVT of the left lower extremity behind the knee. - Labs 09/03/24 08:05 09/03/24 08:05 Abnormal Lab Results - Last 24 Hours (Table) 09/02/24 09/02/24 09/02/24 Range/Units 19:41 23:33 23:33 WBC (4.50-10.00) 10*3/uL RBC (4.40-5.60) 10*6/uL Hct (39.6-50.0) % MCH (27.0-32.0) pg Neutrophils # (1.80-7.70) 10*3/uL APTT 35.1 H (22.0-30.0) sec Sodium (137-145) mmol/L BUN (9-20) mg/dL Creatinine (0.66-1.25) mg/dL Glucose (74-99) mg/dL Troponin I 0.489 H* 0.429 H* (0.000-0.034) ng/mL 09/03/24 09/03/24 09/03/24 Range/Units 08:05 08:05 08:05 WBC 10.57 H (4.50-10.00) 10*3/uL RBC 3.95 L (4.40-5.60) 10*6/uL Hct 37.5 L (39.6-50.0) % MCH 33.2 H (27.0-32.0) pg Neutrophils # 7.96 H (1.80-7.70) 10*3/uL APTT 40.1 H (22.0-30.0) sec Sodium 135 L (137-145) mmol/L BUN 8 L (9-20) mg/dL Creatinine 0.60 L (0.66-1.25) mg/dL Glucose 116 H (74-99) mg/dL Troponin I (0.000-0.034) ng/mL Diabetes panel 09/03/24 Range/Units 08:05 Sodium 135 L (137-145) mmol/L Potassium 3.9 (3.5-5.1) mmol/L Chloride 107 (98-107) mmol/L Carbon Dioxide 24 (22-30) mmol/L BUN 8 L (9-20) mg/dL Creatinine 0.60 L (0.66-1.25) mg/dL Glucose 116 H (74-99) mg/dL Calcium 8.8 (8.4-10.2) mg/dL Thyroid panel 09/03/24 Range/Units 08:05 TSH 4.550 (0.465-4.680) mIU/L Calcium panel 09/03/24 Range/Units 08:05 Calcium 8.8 (8.4-10.2) mg/dL Pituitary panel 09/03/24 09/03/24 Range/Units 08:05 08:05 Sodium 135 L (137-145) mmol/L Potassium 3.9 (3.5-5.1) mmol/L Chloride 107 (98-107) mmol/L Carbon Dioxide 24 (22-30) mmol/L BUN 8 L (9-20) mg/dL Creatinine 0.60 L (0.66-1.25) mg/dL Glucose 116 H (74-99) mg/dL Calcium 8.8 (8.4-10.2) mg/dL TSH 4.550 (0.465-4.680) mIU/L Adrenal panel 09/03/24 Range/Units 08:05 Sodium 135 L (137-145) mmol/L Potassium 3.9 (3.5-5.1) mmol/L Chloride 107 (98-107) mmol/L Carbon Dioxide 24 (22-30) mmol/L BUN 8 L (9-20) mg/dL Creatinine 0.60 L (0.66-1.25) mg/dL Glucose 116 H (74-99) mg/dL Calcium 8.8 (8.4-10.2) mg/dL Assessment and Plan Assessment: Provoked acute bilateral submassive pulmonary embolism with right heart strain Elevated troponin secondary to submassive embolism Prostate cancer, currently on hormonal therapy Family history of pulmonary embolism Left ventricular thrombus Plan: Agree with IV heparin drip Discussed with the patient options including catheter directed thrombectomy for his IVC clot as well as bilateral pulmonary embolism. Due to the extent of his thrombus and elevated troponin he does have right heart strain and therefore intervention is indicated. We discussed all the options including the risks and benefits of the procedure including worsening PE, and . Agree with echocardiogram to assess cardiac structure Patient will need lifelong anticoagulation due to history of DVT, PE and prostate cancer. Hematology/oncology recommendations appreciated. Will schedule for percutaneous thrombectomy with INARI via the right common femoral vein as soon as possible. Thank you for the consultation.
--- NOTE | 2024-09-03 17:34 | CA ---
Transthoracic Echo Report Name: Dave Stevens Age: 58 Gender: M : 1965 Exam Date: 09/03/2024 11:43 Exam Location: [facility] Ht (in): 69 Wt (lb): 140 Ordering Physician: Rui Bauer MD ([id number]) Attending/Referring Phys: Beader Tender Saira Chandler RDCS Procedure CPT: Indications: cardiomyopathy, LV thrombus Cardiac Hx: Technical Quality: Good Contrast 1: Definity Total Dose (mL): 2 Contrast 2: Total Dose (mL): MEASUREMENTS (Male / Female) Normal Values 2D ECHO LV Diastolic Diameter PLAX 5.4 cm 4.2 - 5.9 / 3.9 - 5.3 cm LV Systolic Diameter PLAX 3.3 cm IVS Diastolic Thickness 0.8 cm 0.6 - 1.0 / 0.6 - 0.9 cm LVPW Diastolic Thickness 0.8 cm 0.6 - 1.0 / 0.6 - 0.9 cm LV Relative Wall Thickness 0.3 RV Internal Dim ED PLAX 3.1 cm LVOT Diameter 1.9 cm LA Systolic Diameter LX 3.3 cm 3.0 - 4.0 / 2.7 - 3.8 cm LA Volume 39.2 cm??? 18 - 58 / 22 - 52 cm??? LA Volume Index 22.3 cm???/m??? 16 - 28 cm???/m??? DOPPLER MV Area PHT 3.6 cm??? Mitral E Point Velocity 47.8 cm/s Mitral A Point Velocity 57.5 cm/s Mitral E to A Ratio 0.8 MV Deceleration Time 208.2 ms TR Peak Velocity 311.7 cm/s TR Peak Gradient 38.9 mmHg Right Atrial Pressure 5.0 mmHg Pulmonary Artery Systolic Pressu 43.9 mmHg Right Ventricular Systolic Press 43.9 mmHg FINDINGS Left Ventricle Left ventricular ejection fraction is estimated at 60 %. Left ventricular dilatation. Left ventricular wall thickness normal. Apical thrombus. Right Ventricle Right ventricle not well visualized. Mild pulmonary hypertension. Right ventricular systolic pressure estimated at 44 mm hg. Right Atrium Normal right atrial size. Left Atrium Normal left atrial size. Mitral Valve Mitral annular calcification. No mitral stenosis. Trace mitral regurgitation. Aortic Valve Trileaflet aortic valve. No aortic valve stenosis or regurgitation. Tricuspid Valve Structurally normal tricuspid valve. No tricuspid stenosis. Mild tricuspid regurgitation. Pulmonic Valve Structurally normal pulmonic valve. No pulmonic stenosis. Trace to mild pulmonic regurgitation. Pericardium Minimal pericardial effusion (normal variant). Aorta Normal size aortic root and proximal ascending aorta. CONCLUSIONS Reason: Cardiomyopathy and possible LV thrombus Normal LV size and function with possible apical hypokinesis Echodense mass in the LV apex, likely LV thrombus Previewed by: Dr. Ankush Chavez MD (Electronically Signed) Final Date: 03 September 2024 17:33
[2024-09-03] MEDS: LIDOCAINE 1% INJ 10MG/ML (20 ML MDV) SQ ONE (19:41)
[2024-09-03] MEDS: fentaNYL (PF) 50 MCG/ML 2 ML AMP IVP ONE (19:43)
[2024-09-03] MEDS: MIDAZOLAM 2 MG/2 ML VIAL IVP ONE (19:43)
[2024-09-03] MEDS: SODIUM CHLORIDE 0.9% 1,000 ML IV ONE (19:44)
[2024-09-03] MEDS: HEPARIN SODIUM 1,000 UN/ML (10ML VL) IV ONE (19:59)
[2024-09-03] MEDS: IOPAMIDOL-370 100ML BTL INJ ONE (20:21)
--- NOTE | 2024-09-03 20:39 | P.OP ---
Date of Procedure: 09/03/24 Preoperative Diagnosis: Acute bilateral pulmonary embolism with right heart strain IVC thrombus Postoperative Diagnosis: Same Procedure(s) Performed: Ultrasound-guided right common femoral vein access Inferior vena cava venogram Pulmonary angiogram with selective right and left pulmonary artery angiograms Percutaneous thrombectomy with Inari flowtriever with extirpation of clot from the inferior vena cava Percutaneous thrombectomy with Inari flowtriever with extirpation of clot from right main pulmonary artery Percutaneous thrombectomy with Inari flowtriever with extirpation of clot from right truncus anterior Percutaneous thrombectomy with Inari flowtriever with extirpation of clot from right lobar pulmonary artery Percutaneous thrombectomy with Inari flowtriever with extirpation of clot from the left main pulmonary artery Percutaneous thrombectomy with Inari flowtriever with extirpation of the clot from the left lobar pulmonary artery Conscious sedation x 22 minutes Anesthesia: local (With conscious sedation) Surgeon: Rafita Brandon Estimated Blood Loss (ml): 50 Pathology: none sent Condition: stable Disposition: floor Indications for Procedure: 58-year-old gentleman with history of prostate cancer on hormonal therapy presented to the hospital secondary to acute chest pain and shortness of breath and was diagnosed with bilateral pulmonary embolism with increased troponin indicative of right heart strain. He also had IVC thrombus noted as well as left ventricular thrombus and discussion was had with possible thrombectomy which he agreed. Description of Procedure: After written and informed consent was obtained the patient all risks, benefits and complications were described patient was brought to the Manager Simulation laid in a supine position. The area of the groins were prepped and draped in usual sterile fashion. Utilizing ultrasound guidance the right common femoral vein was located and shown to be patent without thrombus and then was accessed with a micropuncture kit and utilizing Seldinger technique an 8-Lao sheath was placed. Inferior vena cava venogram was then performed demonstrating some decreased flow at the IVC caval junction. 035 guidewire was then advanced into the IVC under fluoroscopic guidance. Track was dilated and the Inari 24-Lao sheath was placed. Suction thrombectomy was performed at this time with some small amount of clot removed. An angled pigtail catheter was then placed and utilizing a J-wire the heart was entered and advanced into the pulmonary artery. Pigtail catheter was then removed over the wire and a JR4 catheter was placed and the right pulmonary artery was entered and wire was placed to the main right pulmonary artery. The wire was then exchanged for an Amplatz wire in normal fashion. Patient was administered heparin at this time. A thrombectomy catheter was then advanced and pulmonary angiogram was obtained demonstrating thrombus within the right main and segmental branches as well as the left main. Mechanical thrombectomy was then performed with aspiration of multiple large clots. Aspiration was performed 3 times. Right pulmonary angiogram was then obtained demonstrating resolution of thrombus within the main pulmonary artery as well as the truncus anterior. Catheter was then selectively placed in the left main pulmonary artery and mechanical thrombectomy was performed 2 times. Pulmonary and gram was then obtained demonstrating complete resolution of thrombus with good filling to the outer aspects of the long on both sides. Once completed all catheters and wires were removed. A suture was placed in the right groin after the sheath was removed for hemostasis. Patient tolerated procedure well and was sent to recovery.
[2024-09-03] MEDS: PANTOPRAZOLE 40 MG TABLET PO SCH (21:56)
[2024-09-03 23:56] LABS: Cholesterol 175.00 mg/dL (0.00-200.00); HDL Cholesterol 53.30 mg/dL (40.00-60.00); LDL Cholesterol,Calculated 96.1 mg/dL (0.0-131.0); Triglycerides 128.00 mg/dL (0.00-149.00); VLDL Calculation 25.60 mg/dL (5.00-40.00)
[2024-09-04 05:08] VITALS: RESP 16; TEMP 97.9
[2024-09-04 08:17] LABS: Basophils # (A) 0.07 10*3/uL (0.00-0.10); Basophils % (A) 0.7 %; Eosinophils # (A) 0.13 10*3/uL (0.04-0.35); Eosinophils % (A) 1.3 %; HCT 37.9 % (39.6-50.0); HGB 12.9 g/dL (13.0-17.0); Lymphocytes # (A) 1.49 10*3/uL (0.90-5.00); Lymphocytes % (A) 14.8 %; MCH 32.6 pg (27.0-32.0); MCHC 34.0 g/dL (32.0-37.0); MCV 95.7 fL (80.0-97.0); Monocytes # (A) 0.65 10*3/uL (0.20-1.00); Monocytes % (A) 6.4 %; Neutrophils # (A) 7.73 10*3/uL (1.80-7.70); Neutrophils % (A) 76.6 %; Platelet Count 192 10*3/uL (140-440); RBC 3.96 10*6/uL (4.40-5.60); RDW 13.6 % (11.5-14.5); WBC 10.09 10*3/uL (4.50-10.00)
[2024-09-04 08:36] LABS: African American GFR (CKD) >90 (>60 ml/min/1.73 sqM); Anion Gap 8 mmol/L; Blood Urea Nitrogen 6 mg/dL (9-20); Calcium 8.9 mg/dL (8.4-10.2); Carbon Dioxide 22 mmol/L (22-30); Chloride 104 mmol/L (98-107); Glucose 93 mg/dL (74-99); Non-African American GFR(CKD) >90 (>60 ml/min/1.73 sqM); Potassium 3.9 mmol/L (3.5-5.1); Sodium 134 mmol/L (137-145)
[2024-09-04] MEDS: NON FORMULARY DRUG (Enzalutamide [Xtandi] 40 MG Capsule) PO SCH (09:00)
[2024-09-04 09:01] VITALS: BP 110/71; PULSE 90
--- NOTE | 2024-09-04 10:54 | P.PN ---
Subjective Progress Note Date: 09/04/24 Principal diagnosis: PE Patient seen and examined at bedside this morning. He is doing well and states that his breathing has improved and he is no longer in chest pain. He has been only on 1 L nasal cannula. Objective - Vital Signs Vital signs: Vital Signs Temp 97.9 F 09/04/24 04:00 Pulse 90 09/04/24 09:01 Resp 16 09/04/24 09:01 BP 110/71 09/04/24 09:01 Pulse Ox 97 09/04/24 09:01 FiO2 Intake & Output 09/03/24 09/04/24 09/04/24 18:59 06:59 18:59 Intake Total 124.851 325.73 180 Output Total 540 Balance 124.851 -214.27 180 Weight 64.6 kg Intake: IV 200 Intake, IV Titration 124.851 125.73 Amount Heparin Sod,Pork in 0.45% 124.47 NaCl 25,000 unit In 0.45 % NaCl 1 250ml.bag @ 18 UNITS/KG/HR 11.431 mls/hr IV .[id number] [facility] Rx#: [id number] Heparin Sod,Pork in 0.45% 0.381 125.73 NaCl 25,000 unit In 0.45 % NaCl 1 250ml.bag @ 18 UNITS/KG/HR 11.431 mls/hr IV .[id number] [facility] Rx#: [id number] Oral 180 Output: Urine 540 Other: Voiding Method Urinal # Voids 1 - Exam right groin without hematoma, infection. Suture in place. No edema bilaterally - Constitutional General appearance: Present: average body habitus, cooperative - EENT Eyes: Present: PERRLA - Respiratory Respiratory: bilateral: CTA - Cardiovascular Rhythm: regular - Neurologic Neurologic: Present: CNII-XII intact - Psychiatric Psychiatric: Present: A&O x's 3 - Labs CBC & Chem 7: 09/04/24 07:06 09/04/24 07:06 Labs: Abnormal Lab Results - Last 24 Hours (Table) 09/04/24 09/04/24 09/04/24 Range/Units 07:06 07:06 07:06 WBC 10.09 H (4.50-10.00) 10*3/uL RBC 3.96 L (4.40-5.60) 10*6/uL Hgb 12.9 L (13.0-17.0) g/dL Hct 37.9 L (39.6-50.0) % MCH 32.6 H (27.0-32.0) pg Neutrophils # 7.73 H (1.80-7.70) 10*3/uL APTT 31.1 H (22.0-30.0) sec Sodium 134 L (137-145) mmol/L BUN 6 L (9-20) mg/dL Creatinine 0.56 L (0.66-1.25) mg/dL Assessment and Plan Assessment: POD #1 percutaneous thrombectomy Provoked acute bilateral submassive pulmonary embolism with right heart strain Elevated troponin secondary to submassive embolism Prostate cancer, currently on hormonal therapy Family history of pulmonary embolism Left ventricular thrombus Plan: Transition to oral anticoagulation Remove suture today. Ok for discharge from vascular standpoint.
[2024-09-04] MEDS: APIXABAN 5 MG TAB PO SCH (13:13)
--- NOTE | 2024-09-04 14:06 | P.DS ---
Providers Date of admission: 09/02/24 17:30 Expected date of discharge: 09/04/24 Attending physician: Gera Alavrez Consults: 09/02/24 17:27 Consult Physician Urgent Consulting Provider: Steven Gorman Consult Reason/Comments: Pulmonary embolism Do you want consulting provider notified?: Yes 09/02/24 17:32 Consult Physician Routine Consulting Provider: John Barrett Consult Reason/Comments: prostate cancer, new submassive PE Do you want consulting provider notified?: Yes 09/03/24 09:20 Consult Physician Routine Consulting Provider: Rafita Brandon Consult Reason/Comments: submassive PE Do you want consulting provider notified?: Yes Primary care physician: Stated None Hospital Course: Discharge Diagnosis: Acute submassive bilateral PE, likely provoked Type II NSTEMI secondary to above DVT to LLE Left ventricular apical thrombus Medediastinal lymphadenopathy Hx of prostate cancer Chronic: Anxiety disorder GERD Hospital Course: Patient is a 58-year-old male with history of prostate cancer on enzalutamide, and megestrol, anxiety disorder, GERD presenting with sudden onset chest pain that started 09/02/2024. He claims that he was in his usual state of health and woke up that morning at 5 AM with sudden onset left-sided chest pain extending to his left neck. He described the pain as pleuritic, 10 out of 10, associated with shortness of breath, palpitations and lightheadedness. He denies any nausea or vomiting or diaphoresis. He does claim that he was noticing some pain in his left lower extremity 1 week ago. He denies any travel history or sick contacts. He denies any fevers or chills. In the ED, temperature was 97.7, pulse 118, blood pressure 103/63, respiratory rate 20, saturating at 93% on room air. WBC 9.26, hemoglobin 15.1, platelet 199, D-dimer 4.25, sodium 135, creatinine 0.62, troponin 0.529. Chest CTA shows multiple PE involving bilateral pulmonary arteries more pronounced on the right side, no significant evidence of right heart strain, thrombosis suggested in the IVC extending into the liver with possible involvement into the hepatic veins, nonenhancing round focus of peripheral calcification of the left ventricular apex may represent calcified/thrombosed reticular aneurysm versus peripherally calcified left ventricular thrombus, mediastinal lymphadenopathy, may be reactive, consolidation and groundglass changes in the lingular region and left lower lobe. Patient was admitted as inpatient for acute bilateral submassive PE. Venous Doppler study showed acute near occlusive deep vein thrombosis of the left lower extremity distal femoral vein to the calf veins. No evidence of deep vein thrombosis of the right lower extremity. Patient was placed on heparin drip. On 09/03/2024, vascular surgery performed a thrombectomy to IVC, right and left main pulmonary artery, as well as some bilateral branches. While admitted, the patient's megestrol acetate was held but his enzalutamide was continued. Echocardiogram showed left ventricular ejection fraction estimated at 60% and left ventricular diastolic dilatation with an apical thrombus. Following PE thrombectomy the patient's condition improved markedly. He denied any pain or shortness of breath. Amenable to plan for discharge with outpatient follow up. Heparin drip was stopped and the patient was placed on Eliquis. Patient was recommended to follow-up with heme-onc, cardiology, and internal medicine. Patient seen and examined at bedside. Vital signs reviewed and stable. Physical examination: Vital signs reviewed General: nontoxic, NAD, appears at stated age Derm: warm, dry Head: atraumatic, normocephalic, symmetric Eyes: EOMI, no lid lag, anicteric sclera, pupils equal round reactive to light ENT: Nose and ears atraumatic Neck: No thyromegaly, supple Mouth: no lip lesion, mucus membranes moist Cardiovascular: Regular rate and rhythm. no murmur, no edema Lungs: clear to auscultation bilateral, no rhonchi, no rales, no wheeze, no accessory muscle use, on room air Abdominal: soft, nontender to palpation, no guarding, no appreciable organomegaly Ext: no gross muscle atrophy, muscle strength muscle strength 5 out of 5 in all 4 extremities, no contractures Neuro: CN II-XII grossly intact Psych: Alert, oriented, appropriate affect A total of greater than 30 minutes of time were spent preparing this complex discharge summary. Patient was discharged on 09/04/2024. Terrell Payan MD PGY-1 TY Dictation was produced using [employer] dictation software. please excuse any grammatical, word or spelling errors. I have seen and evaluated the patient today. Discussed with the resident and agree with the residents finding and plan as documented in the resident's note. Changes highlighted in blue font. Plan - Discharge Summary Discharge Rx Participant: No New Discharge Prescriptions: New Apixaban [Eliquis Starter Pack (for VTE)] 5 - 10 mg PO DIRECTED 30 Days #1 each Continue Pantoprazole [Protonix] 40 mg PO HS ALPRAZolam [Xanax] 0.5 - 1 mg PO BID Cholecalciferol [Vitamin D3 (10 Mcg = 400 Iu)] 20 mcg PO BID Calcium 26/Magnesium 15/Zinc [Fmtrzyv-Gbiziaqqp-Ovpu Capsule] 1 cap PO BID Tamsulosin [Flomax] 0.4 mg PO BID Loratadine [Claritin] 10 mg PO HS Enzalutamide [Xtandi] 160 mg PO DAILY Discontinued Megestrol Acetate 20 mg PO HS Discharge Medication List ALPRAZolam [Xanax] 0.5 - 1 mg PO BID 09/02/24 [History] Calcium 26/Magnesium 15/Zinc [Bsbnwfb-Tsckhvqyb-Ekgd Capsule] 1 cap PO BID 09/02/24 [History] Cholecalciferol [Vitamin D3 (10 Mcg = 400 Iu)] 20 mcg PO BID 09/02/24 [History] Enzalutamide [Xtandi] 160 mg PO DAILY 09/02/24 [History] Loratadine [Claritin] 10 mg PO HS 09/02/24 [History] Pantoprazole [Protonix] 40 mg PO HS 09/02/24 [History] Tamsulosin [Flomax] 0.4 mg PO BID 09/02/24 [History] Apixaban [Eliquis Starter Pack (for VTE)] 5 - 10 mg PO DIRECTED 30 Days #1 each 09/04/24 [Rx] Follow up Appointment(s)/Referral(s): Rui Bauer MD [Medical Doctor] - 1 Week (office will call you with appointment ) John Dye MD [STAFF PHYSICIAN] - 1 Week (keep appointment 10 am 09/25 ) [facility] [NON-STAFF] - 1 Week None,Stated [Primary Care Provider] - 1-2 days Patient Instructions/Handouts: Pulmonary Embolism (DC), Mechanical Thrombectomy (DC) Activity/Diet/Wound Care/Special Instructions: Please see your PCP, cardiology and oncology. keep site covered for 2 days then may remove and shower. no hot tub, bath for 7-10 days You will need to be on eliquis for minimum 3 months. Discharge Disposition: HOME SELF-CARE
--- NOTE | 2024-09-04 15:58 | P.PN ---
Subjective Progress Note Date: 09/04/24 Patient is a 58-year-old male presented to the ER with complaint of sudden onset left-sided chest pain at 5 am yesterday morning. Patient described pain as constant, pleuritic in nature, 10/10, left-sided, radiating to left shoulder and left neck associated with diaphoresis and shortness of breath. Patient reports no previous episodes of chest pain. Past medical history significant for prostate cancer on daily hormonal therapy. Patient reports that he had COVID-19 associated URTI 3 weeks ago for which he was bed resting and was therefore less mobile. Patient however denies history of DVT, no recent history of travel, denies pain or swelling of lower extremities. 09/04/2024: Patient seen and examined at the bedside. Patient underwent thrombectomy yesterday. Patient reports drastic improvement in shortness of breath. Reports no chest pain. Labs show WBC 10.09, hemoglobin 12.9, sodium 134, potassium 3.9, BUN 6, creatinine 0.56. Patient is currently on Eliquis for anticoagulation. E chocardiogram shows LVEF of 60%. LV apical thrombus. Pertinent images: No new images today Review of systems: Pertinent positives and negatives as discussed in HPI, a complete review of systems was performed and all other systems are negative. Physical examination: Vital signs reviewed General: non toxic, no distress, appears at stated age, normal weight Neck: No cervical lymphadenopathy, trachea midline, supple, no JVP Mouth: no lip lesion, mucus membranes moist Cardiovascular: S1S2 reg, no murmur, positive dorsalis pedis pulse bilateral, no edema Lungs: CTA bilateral, no rhonchi, no rales, no accessory muscle use Abdominal: soft, nontender to palpation, no guarding Assessment: #Acute bilateral submassive pulmonary embolism with high clot burden, likely provoked in the setting of prostate cancer vs recent immobilization #Status post thrombectomy 09/03/2024, postop day #1 #LV thrombus #Elevated troponin secondary to submassive embolism #Prostate cancer, currently on hormonal therapy #Family history of pulmonary embolism #Calcified left ventricular thrombus on chest CTA Plan: Continue with Eliquis Patient will need lifelong anticoagulation, recommend warfarin therapy given ext ensive clot burden and her risk for future blood clots Continue heme-onc follow up for prostate cancer Patient is otherwise stable from cardiology standpoint and is cleared for discharge. Objective - Vital Signs Vital signs: Vital Signs Temp 97.9 F 09/04/24 04:00 Pulse 90 09/04/24 09:01 Resp 16 09/04/24 09:01 BP 110/71 09/04/24 09:01 Pulse Ox 97 09/04/24 09:01 FiO2 Intake & Output 09/03/24 09/04/24 09/04/24 18:59 06:59 18:59 Intake Total 124.851 325.73 180 Output Total 540 Balance 124.851 -214.27 180 Weight 64.6 kg Intake: IV 200 Intake, IV Titration 124.851 125.73 Amount Heparin Sod,Pork in 0.45% 124.47 NaCl 25,000 unit In 0.45 % NaCl 1 250ml.bag @ 18 UNITS/KG/HR 11.431 mls/hr IV .[id number] [facility] Rx#: [id number] Heparin Sod,Pork in 0.45% 0.381 125.73 NaCl 25,000 unit In 0.45 % NaCl 1 250ml.bag @ 18 UNITS/KG/HR 11.431 mls/hr IV .[id number] [facility] Rx#: [id number] Oral 180 Output: Urine 540 Other: Voiding Method Urinal Urinal # Voids 1 - Labs CBC & Chem 7: 09/04/24 07:06 09/04/24 07:06 Labs: Abnormal Lab Results - Last 24 Hours (Table) 09/04/24 09/04/24 09/04/24 Range/Units 07:06 07:06 07:06 WBC 10.09 H (4.50-10.00) 10*3/uL RBC 3.96 L (4.40-5.60) 10*6/uL Hgb 12.9 L (13.0-17.0) g/dL Hct 37.9 L (39.6-50.0) % MCH 32.6 H (27.0-32.0) pg Neutrophils # 7.73 H (1.80-7.70) 10*3/uL APTT 31.1 H (22.0-30.0) sec Sodium 134 L (137-145) mmol/L BUN 6 L (9-20) mg/dL Creatinine 0.56 L (0.66-1.25) mg/dL
[2024-09-04] MEDS ORDERED: APIXABAN 5 MG TAB PO SCH (21:00)
[2024-09-11] MEDS ORDERED: APIXABAN 5 MG TAB PO SCH (09:00)
== END 2024-09-04 13:26 | disposition home or self-care (01) | DRG 950 ==
LOC: EC 14:44 → 3SCARD 17:30
PROVIDERS: ADMIT Student in an Organized Health Care Education/Training Program; ATTEND Student in an Organized Health Care Education/Training Program
PROC: 02CQ3ZZ Extirpation of Matter from Right Pulmonary Artery, Percutaneous Approach (ICD-10-PCS; principal; 2024-09-03 17:00)
PROC: 06C03ZZ Extirpation of Matter from Inferior Vena Cava, Percutaneous Approach (ICD-10-PCS; principal; 2024-09-03 17:00)
PROC: 02CR3ZZ Extirpation of Matter from Left Pulmonary Artery, Percutaneous Approach (ICD-10-PCS; principal; 2024-09-03 17:00)
DX: I26.99 Other pulmonary embolism without acute cor pulmonale (principal); I51.3 Intracardiac thrombosis, not elsewhere classified; I82.220 Acute embolism and thrombosis of inferior vena cava; I82.412 Acute embolism and thrombosis of left femoral vein; K21.9 Gastro-esophageal reflux disease without esophagitis; I21.A1 Myocardial infarction type 2; R59.0 Localized enlarged lymph nodes; F41.9 Anxiety disorder, unspecified; C61 Malignant neoplasm of prostate; C79.9 Secondary malignant neoplasm of unspecified site; D68.59 Other primary thrombophilia; D72.828 Other elevated white blood cell count; F17.200 Nicotine dependence, unspecified, uncomplicated; Z86.16 Personal history of COVID-19; Z79.890 Hormone replacement therapy; Z79.899 Other long term (current) drug therapy
CPT/HCPCS: 36415; 37184; 37185; 71275; 75743; 75825; 80048; 80053; 80061; 83605; 83880; 84443; 84484; 85025; 85379; 85610; 85730; 93005; 93306; 93970; 96365; 96366; 96375; 96376; 99291